=== PATIENT | female | born 1940 | race Caucasian/White ===

== ENCOUNTER 2018-02-27 15:32 | Outpatient (CLI) | payer MEDICARE, BC, OTHER ==
[~2018-02-27] VITALS: Ht 144.8 cm; Wt 99.8 kg
[~2018-02-27 15:32] MED LIST: ATIVAN0.5 MG PO; BACTRIM DS TAB1 EACH; CARISOPRODOL 3350 MG PO; CELEBREX 200 M200 MG PO; CLEOCIN HCL300 MG PO; DIAZIDE PO; DYAZIDE 37.5-21 EACH; FLAX OIL1000 MG; MIRALAX255 GM PO; PERCOCET 5-3251 EACH PO; PROVENTIL HFA6.7 G1 INH; RHINOCORT AQUA8.6 GM INH; STOOL SOFTENER1 EAC2 PO; TRAMADOL 50 MG50 MG PO; VITAMIN D35000 UNI1 PO
[2018-02-27] MEDS ORDERED: XARELTO10 MG PO (17:18)
[2018-02-27 18:03] VITALS: BP 174/107
== END 2018-02-27 18:04 | disposition home or self-care (01) ==
LOC: M.ERS 18:04
DX: S92.902A Unspecified fracture of left foot, initial encounter for closed fracture (principal); I82.412 Acute embolism and thrombosis of left femoral vein; B35.4 Tinea corporis; B35.3 Tinea pedis; L08.9 Local infection of the skin and subcutaneous tissue, unspecified; E11.9 Type 2 diabetes mellitus without complications; I10 Essential (primary) hypertension; X58.XXXA Exposure to other specified factors, initial encounter; Y93.89 Activity, other specified; Y92.89 Other specified places as the place of occurrence of the external cause; Y99.8 Other external cause status

== ENCOUNTER → 2018-03-03 | Outpatient (CLI) | payer MEDICARE, BC, OTHER ==
[~2018-03-03] MED LIST changes: +XARELTO10 MG PO
== END ==
LOC: M.WC 09:00
DX: E11.622 Type 2 diabetes mellitus with other skin ulcer (principal); I87.312 Chronic venous hypertension (idiopathic) with ulcer of left lower extremity; L97.822 Non-pressure chronic ulcer of other part of left lower leg with fat layer exposed; E11.65 Type 2 diabetes mellitus with hyperglycemia; E11.40 Type 2 diabetes mellitus with diabetic neuropathy, unspecified; I89.0 Lymphedema, not elsewhere classified; I10 Essential (primary) hypertension; J44.9 Chronic obstructive pulmonary disease, unspecified; K59.04 Chronic idiopathic constipation; M15.0 Primary generalized (osteo)arthritis; F41.1 Generalized anxiety disorder; Z96.643 Presence of artificial hip joint, bilateral; Z98.41 Cataract extraction status, right eye; Z98.42 Cataract extraction status, left eye

== ENCOUNTER → 2018-03-14 | Outpatient (CLI) | payer MEDICARE, BC, OTHER | LOC: M.WC 04:31 | DX: E11.622 Type 2 diabetes mellitus with other skin ulcer (principal); I87.312 Chronic venous hypertension (idiopathic) with ulcer of left lower extremity; L97.821 Non-pressure chronic ulcer of other part of left lower leg limited to breakdown of skin; E11.65 Type 2 diabetes mellitus with hyperglycemia; E11.40 Type 2 diabetes mellitus with diabetic neuropathy, unspecified; I89.0 Lymphedema, not elsewhere classified; I10 Essential (primary) hypertension; J44.9 Chronic obstructive pulmonary disease, unspecified; K59.04 Chronic idiopathic constipation; M15.0 Primary generalized (osteo)arthritis; F41.1 Generalized anxiety disorder; I82.492 Acute embolism and thrombosis of other specified deep vein of left lower extremity ==

== ENCOUNTER → 2018-03-21 | Outpatient (CLI) | payer MEDICARE, BC, OTHER | LOC: M.WC 04:57 | DX: I87.032 Postthrombotic syndrome with ulcer and inflammation of left lower extremity (principal); E11.622 Type 2 diabetes mellitus with other skin ulcer; L97.821 Non-pressure chronic ulcer of other part of left lower leg limited to breakdown of skin; E11.65 Type 2 diabetes mellitus with hyperglycemia; E11.40 Type 2 diabetes mellitus with diabetic neuropathy, unspecified; I89.0 Lymphedema, not elsewhere classified; I10 Essential (primary) hypertension; J44.9 Chronic obstructive pulmonary disease, unspecified; K59.04 Chronic idiopathic constipation; M15.0 Primary generalized (osteo)arthritis; F41.9 Anxiety disorder, unspecified; F41.1 Generalized anxiety disorder ==

== ENCOUNTER → 2018-03-28 | Outpatient (CLI) | payer MEDICARE, BC, OTHER | LOC: M.WC 05:20 | DX: E11.622 Type 2 diabetes mellitus with other skin ulcer (principal); I87.013 Postthrombotic syndrome with ulcer of bilateral lower extremity; L97.221 Non-pressure chronic ulcer of left calf limited to breakdown of skin; L97.211 Non-pressure chronic ulcer of right calf limited to breakdown of skin; E11.65 Type 2 diabetes mellitus with hyperglycemia; E11.40 Type 2 diabetes mellitus with diabetic neuropathy, unspecified; I82.402 Acute embolism and thrombosis of unspecified deep veins of left lower extremity; I89.0 Lymphedema, not elsewhere classified; I10 Essential (primary) hypertension; J44.9 Chronic obstructive pulmonary disease, unspecified; M15.0 Primary generalized (osteo)arthritis; K59.04 Chronic idiopathic constipation; F41.1 Generalized anxiety disorder ==

== ENCOUNTER → 2018-04-04 | Outpatient (CLI) | payer MEDICARE, BC, OTHER | LOC: M.WC 05:19 | DX: E11.622 Type 2 diabetes mellitus with other skin ulcer (principal); I87.032 Postthrombotic syndrome with ulcer and inflammation of left lower extremity; L97.221 Non-pressure chronic ulcer of left calf limited to breakdown of skin; L97.211 Non-pressure chronic ulcer of right calf limited to breakdown of skin; E11.65 Type 2 diabetes mellitus with hyperglycemia; E11.40 Type 2 diabetes mellitus with diabetic neuropathy, unspecified; I89.0 Lymphedema, not elsewhere classified; J44.9 Chronic obstructive pulmonary disease, unspecified; K59.04 Chronic idiopathic constipation; M15.0 Primary generalized (osteo)arthritis; F41.1 Generalized anxiety disorder; I82.402 Acute embolism and thrombosis of unspecified deep veins of left lower extremity ==

== ENCOUNTER → 2018-04-18 | Outpatient (CLI) | payer MEDICARE, BC, OTHER | LOC: M.WC 04:50 | DX: I87.312 Chronic venous hypertension (idiopathic) with ulcer of left lower extremity (principal); L97.821 Non-pressure chronic ulcer of other part of left lower leg limited to breakdown of skin; E11.40 Type 2 diabetes mellitus with diabetic neuropathy, unspecified; E11.65 Type 2 diabetes mellitus with hyperglycemia; I89.0 Lymphedema, not elsewhere classified; M15.0 Primary generalized (osteo)arthritis; K59.04 Chronic idiopathic constipation; J44.9 Chronic obstructive pulmonary disease, unspecified; F41.1 Generalized anxiety disorder ==

== ENCOUNTER → 2018-05-09 | Outpatient (CLI) | payer MEDICARE, BC, OTHER | LOC: M.WC 13:00 | DX: E11.622 Type 2 diabetes mellitus with other skin ulcer (principal); I87.032 Postthrombotic syndrome with ulcer and inflammation of left lower extremity; L97.828 Non-pressure chronic ulcer of other part of left lower leg with other specified severity; E11.65 Type 2 diabetes mellitus with hyperglycemia; E11.40 Type 2 diabetes mellitus with diabetic neuropathy, unspecified; I89.0 Lymphedema, not elsewhere classified; I10 Essential (primary) hypertension; J44.9 Chronic obstructive pulmonary disease, unspecified; K59.04 Chronic idiopathic constipation; M15.0 Primary generalized (osteo)arthritis; F41.1 Generalized anxiety disorder ==

== ENCOUNTER → 2018-06-14 | Outpatient (CLI) | payer MEDICARE, BC, OTHER | LOC: M.ULTRA 14:30 | DX: R60.0 Localized edema (principal); Z86.718 Personal history of other venous thrombosis and embolism ==

== ENCOUNTER 2018-09-18 06:10 | Inpatient (IN) | payer MEDICARE, BC, OTHER ==
[~2018-09-18] VITALS: Ht 144.8 cm; Wt 95.3 kg
[~2018-09-18 06:10] MED LIST changes: -DIAZIDE PO; +DYAZIDE 37.5-21 EACH PO; +MIRALAX17 G1 PO; -MIRALAX255 GM PO
[2018-09-18 06:18] VITALS: BP 150/81
[2018-09-18 07:18] LABS: ABSOLUTE EOSINOPHILS 0.1 thou/uL (0.0-0.7); ABSOLUTE MONOCYTES 0.6 thou/uL (0.0-1.2); ABSOLUTE NEUTROPHILS 8.2 thou/uL (1.6-8.1); BASOPHILS 0.3 %; EOSINOPHILS 0.7 %; HEMATOCRIT 44.5 % (37.0-47.0); HEMOGLOBIN 14.9 gm/dL (12.0-15.0); LYMPHOCYTES 10.1 %; MCH 30.2 pg (26.0-34.0); MCHC 33.5 g/dL (28.0-37.0); MCV 90.2 fL (80.0-100.0); MONOCYTES 6.4 %; MPV 8.7 fl. (7.2-11.1); NUCLEATED RBCS 0 /100WBC; PLATELET COUNT* 196 thou/uL (150-400); POLYS 82.5 %; RBC 4.93 mil/uL (4.20-5.00); RDW-CV 13.7 % (10.5-14.5); WBC 9.9 thou/uL (4.0-11.0)
[2018-09-18 07:22] LABS: CALCIUM 9.4 mg/dL (8.5-10.1); CREATININE 1.1 mg/dL (0.6-1.3); POTASSIUM 3.3 mmol/L (3.5-5.1)
[2018-09-18 07:26] LABS: ALBUMIN 2.8 g/dL (3.4-5.0); TOTAL BILIRUBIN 0.9 mg/dL (<0.1-1.0); TOTAL PROTEIN 7.9 g/dL (6.4-8.2)
[2018-09-18 09:06] LABS: URINE BILIRUBIN NEGATIVE (Negative); URINE BLOOD TRACE (Negative); URINE CLARITY CLEAR; URINE COLOR YELLOW; URINE GLUCOSE-RANDOM 3+ (Negative); URINE KETONES 1+ (Negative); URINE LEUKOCYTES-REFLEX NEGATIVE (Negative); URINE NITRITE-REFLEX NEGATIVE (Negative); URINE PROTEIN NEGATIVE (Negative); URINE SPECIFIC GRAVITY <= 1.005 (1.005-1.030); URINE UROBILINOGEN 0.2 E.U./dl (0.2-1.0)
--- NOTE | 2018-09-18 11:30 | NUR ---
PT STATES THAT SHE "DOES NOT WANT TO TAKE ANY MEDICATION FOR HER ELEVATED BLOOD SUGAR BECAUSE SHE DOES NOT TAKE ANYTHING AT HOME AND DOES NOT WANT TO START". THIS NURSE TALKED WITH THE HOSPITALIST AND NOTIFIED HIM OF THE CURRENT SITUATION.
--- NOTE | 2018-09-18 12:35 | NUR ---
PT CURRENTLY TAKING HER HOME MEDICATIONS FROM HER PERSONAL BAG. PT WAS NOTIFIED THAT SHE CANNOT TAKE HER OWN MEDICATIONS WITHOUT TALKING WITH THE DOCTOR AND PHARMACY. PT STATES "I DON'T CARE, I WILL TAKE MY MEDICATION IF I WANT TO". CHARGE NURSE NOTIFIED TO TALK WITH PATIENT.
--- NOTE | 2018-09-18 12:40 | NUR ---
PT ADMITS TO TAKING ONE TAB OF 200MG CELEBREX FROM HER HOME MEDICATIONS FOR PAIN. PT EDUCATED ON REFRAINING FROM TAKING HER HOME MEDICATIONS FROM HER PURSE. PT EDUCATED THAT THE PHARMACY WILL GO THROUGH HER HOME MEDICATIONS AND ORDER THEM THROUGH THE [facility].
--- NOTE | 2018-09-18 12:54 | NUR ---
PT GIVEN A LUNCH TRAY.
--- NOTE | 2018-09-18 14:36 | NUR ---
PT IS AGREEING TO STAY IN THE HOSPITAL AFTER SPEAKING WITH DR. ZUNIGA, HOSPITALIST. PT CONTINUES TO REFUSE TO TAKE ANY INSULIN BUT AGREES TO TAKING IV ANTIBIOTICS AND PO MEDICATIONS.
[2018-09-18 15:20] VITALS: BP 142/67
[2018-09-18 15:27] VITALS: BP 143/88
[2018-09-18 15:45] VITALS: BP 147/81
[2018-09-18 20:20] VITALS: BP 141/67
[2018-09-19] VITALS: BP 149/91
[2018-09-19 04:09] LABS: ABSOLUTE EOSINOPHILS 0.2 thou/uL (0.0-0.7); ABSOLUTE LYMPHOCYTES 1.5 thou/uL (0.8-5.3); ABSOLUTE MONOCYTES 0.6 thou/uL (0.0-1.2); ABSOLUTE NEUTROPHILS 5.1 thou/uL (1.6-8.1); BASOPHILS 0.5 %; EOSINOPHILS 3.1 %; HEMATOCRIT 39.8 % (37.0-47.0); HEMOGLOBIN 13.9 gm/dL (12.0-15.0); LYMPHOCYTES 19.8 %; MCH 31.1 pg (26.0-34.0); MCHC 34.9 g/dL (28.0-37.0); MONOCYTES 7.8 %; MPV 8.8 fl. (7.2-11.1); NUCLEATED RBCS 0 /100WBC; PLATELET COUNT* 211 thou/uL (150-400); POLYS 68.8 %; RBC 4.47 mil/uL (4.20-5.00); RDW-CV 13.1 % (10.5-14.5); WBC 7.4 thou/uL (4.0-11.0)
[2018-09-19 04:19] LABS: ALBUMIN 2.6 g/dL (3.4-5.0); CALCIUM 8.9 mg/dL (8.5-10.1); MAGNESIUM 1.6 mg/dL (1.8-2.4); POTASSIUM 3.3 mmol/L (3.5-5.1)
--- NOTE | 2018-09-19 07:17 | NUR ---
PT ALERT AND ORIENTED. VSS ON RA. PT ON CHAIR THROUGH SHIFT. PT HAD HOME MED IN THE ROOM AND REFUSED GIVING THEM UP. NURSING CELL TECHNICIAN NOTIFIED. NURSING CELL TECHNICIAN TALKED WITH PT. HOME MEDS SENT HOME. HOWEVER PT KEPT A TAB OF XARELTO AND ACTIVAN. PT SAID SHE WOULD TAKE THEM IF SHE DOES NOT GET HER 1AM XARELTO DOSE. NURSING CELL TECHNICIAN AND SECURITY NOTIFIED. HOME MEDS RETRIEVED AND DISPOSED OF. DR KIRBY NOTIFED THAT INCIDENT AND ASKED IF TO GO AHEAD AND GIVE XARELTO. XARELTO GIVEN PER 'S ORDER. PT WAS VERY RUDE IN DEALING WITH STAFFS REGARDING HER HOME MEDICINES. ISOLATION PRECAUTION IN PLACE. CALL LIGHT WITHIN REACH. HOURLY ROUNDINGS MADE. WILL CONTINUE TO MONITOR.
--- NOTE | 2018-09-19 14:54 | NUR ---
Nutrition: Pt seen for decubitous ulcer, cellulitis on elbow. Wt: 210#. BG 300s, alb 2.6, prealb 8.6. Severely depleted visceral protein stores. CHO controlled diet. In ISO. Per RN notes, pt refused insulin. RD will order Beneprotein powder with all meals for better nutrition. Mild risk.
[2018-09-19 16:25] VITALS: BP 172/59
--- NOTE | 2018-09-19 17:33 | NUR ---
ASSESSMENT COMPLETE. PT UP IN CHAIR THROUGHOUT THE DAY. PT REFUSES TURNS. PT REFUSING INSULIN FOR BLOOD SUGARS. IV ABX GIVEN ORDERED. DRESSINGS CHANGED. PT IS ON ROOM AIR, VSS. PT UP ONE ASSIST WITH WALKER. PT HAS IV IN RIGHT HAND, SALINE LOCKED. PT HAS NO OTHER CONCERNS AT THIS TIME. SEE ASSESSMENT AND VITALS FOR OTHER DETAILS. CALL LIGHT WITHIN REACH, WILL CONTINUE PLAN OF CARE
[2018-09-19 21:45] VITALS: BP 116/55
--- NOTE | 2018-09-20 05:37 | NUR ---
PT AWAKE MOST OF SHIFT. ASSESSMENT DOCUMENTED. MEDS GIVEN PER E-MAR PER PATIENT REQUEST. PT UPSET ABOUT AMOUNT OF ABX BEING RECIEVED, PT STATES THAT THE DRS ARE TRYING TO KILL HER WITH TOO MUCH ABX, BUT THAT SHE WOULD STILL TAKE IT SO SHE COULD GO HOME TODAY. PT EDUCATED ABOUT ANTIBIOTICS. PT REPORTS BEING UPSET THAT NOONE WILL WALK WITH HER AND FEELS THAT SHE IS GETTING WORSE BY BEING HERE. DRIVER MATERIAL HANDLER TALKED TO PATIENT. PT CALM AT THIS TIME. PT REPORTS UNDERSTANDING OF ABX, BUT STATES THAT SHE IS NOT GOING TO TAKE HER METFORMIN DUE TO IT UPSETTING HER STOMACH AND GIVING HER GAS, PT STATES THAT SHE DOES NOT WANT ANYTHING FOR HER GAS PAINS. PT WALKED HALLWAYS 2X THIS SHIFT. PTS IV FELL OUT WHILE SHE WAS SLEEPING, NEW IV STARTED. WILL CONTINUE WITH PLAN OF CARE.
[2018-09-20 07:50] LABS: ABSOLUTE EOSINOPHILS 0.3 thou/uL (0.0-0.7); ABSOLUTE LYMPHOCYTES 1.4 thou/uL (0.8-5.3); ABSOLUTE MONOCYTES 0.5 thou/uL (0.0-1.2); ABSOLUTE NEUTROPHILS 4.2 thou/uL (1.6-8.1); BASOPHILS 0.4 %; EOSINOPHILS 4.7 %; HEMATOCRIT 39.5 % (37.0-47.0); HEMOGLOBIN 13.3 gm/dL (12.0-15.0); LYMPHOCYTES 21.7 %; MCH 30.3 pg (26.0-34.0); MCHC 33.7 g/dL (28.0-37.0); MCV 90.1 fL (80.0-100.0); MONOCYTES 7.9 %; MPV 8.4 fl. (7.2-11.1); NUCLEATED RBCS 0 /100WBC; PLATELET COUNT* 219 thou/uL (150-400); POLYS 65.3 %; RBC 4.38 mil/uL (4.20-5.00); RDW-CV 13.5 % (10.5-14.5); WBC 6.5 thou/uL (4.0-11.0)
[2018-09-20 08:03] LABS: CALCIUM 8.9 mg/dL (8.5-10.1); CREATININE 0.9 mg/dL (0.6-1.3); MAGNESIUM 1.6 mg/dL (1.8-2.4); POTASSIUM 3.3 mmol/L (3.5-5.1)
--- NOTE | 2018-09-20 10:44 | NUR ---
SW met with pt to complete initial assessment, introduce self, and SW role. Pt alert, oriented. Pt previous record from 2011. Pt continues to live alone and pt says she does not ever want to live in long-term. Pt has a 4 ww with a seat. Pt has hx of HH services. Pt open to HH services at dc if needed. SW to continue to follow to assist with safe dc planning.
--- NOTE | 2018-09-20 10:55 | NUR ---
WOUND NURSE - PATIENT UP AMBULATING IN FU WITH ROLLER WALKER, WITH ELBOWS RESTING ON HANDLES - INSISTS THAT SHE DOES THIS ROUTINELY, IT IS MORE COMFORTABLE FOR HER. SHE HAS SOME DRY, THICKENED SKIN ON RIGHT ELBOW AND MORE PRONOUNCED PATCH OF DRY SKIN APPROXIMATELY 7 X 6 CM ON LEFT ELBOW. NO OPEN AREA OR DRAINAGE, NO ACUTE ERYTHEMA ON EITHER ELBOW. MOISTURIZER AND ELBOW PADS APPLIED TO BOTH ELBOWS. PATIENT ENCOURAGED TO AVOID UNNECESSARY PRESSURE TO ELBOWS. PATIENT REPORTS THAT SHE WAS AWARE OF OPEN AREA ON LEFT BUTTOCKS, FIRST NOTICED APPROXIMATELY 1 MONTH AGO. SHE HAD BEEN TRYING TO APPLY VARIOUS BANDAGES, BUT DIFFICULT TO APPLY HERSELF AND DO NOT STAY ON. SHE SITS IN RECLINER DAY & NIGHT, BUT DOES GET UP FREQUENTLY TO GO TO THE BATHROOM. NOTED SMALL STAGE 2 OPEN AREAS ON BILATERAL BUTTOCKS, EACH 1.8 X 0.8 CM. WOUND BASE DARK PINK, DRY WITH NO NECROTIC TISSUE AND NO DRAINAGE. SURROUNDING SKIN INTACT WITH NO ERYTHEMA, INDURATION OR FLUCTUANCE. AREA NON-TENDER. BOTH AREAS CLEANSED WELL, APPLIED SMALL AMOUNT OF Z-GUARD AND COVERED WITH SMALL BORDERED FOAM DRESSINGS. PATIENT INSISTS THAT DRESSINGS WILL NOT STAY ON, BUT WILLING TO TRY - ACKNOWLEDGING THAT APPLICATION BY STAFF MAY BE MORE SECURE THAN WHEN SHE APPLIES. REINFORCED IMPORTANCE OF KEEPING PRESSURE OFF AREA WITH FREQUENT POSITION CHANGES. ALSO ENCOURAGED PATIENT TO USE WAFFLE CUSHION TO ASSIST WITH PRESSURE REDISTRIBUTION WHILE SITTING. PLAN: -WOUND CARE ORDERED -ASSIST/REMIND PATIENT TO CHANGE POSITION EVERY 2 HOURS -EHOB WAFFLE CUSHION
[2018-09-20 12:34] VITALS: BP 116/55
--- NOTE | 2018-09-20 13:41 | NUR ---
GLUE SPREADER INFORMED THAT THE PATIENT WOULD D/C HOME TODAY WITH HH. D/C ADVERTISING SPECIALIST SPOKE TO THE PATIENT TO DISCUSS DISCHARGE PLANNING NEEDS AND CHOICE OF HH. PATIENT INFORMS THAT SHE HAD USED [facility] IN THE PAST FOR HH. D/C ADVERTISING SPECIALIST COMPLETED CHOICE OF VENDOR FOR WITH PATIENT AND PATIENT SIGNED FORM. D/C ADVERTISING SPECIALIST SPOKE TO [facility] TO INFORM OF THE HH REFERRAL AND FAXED THE PATIENT'S FACESHEET, H&P, AND D/C ORDERS TO [facility]. CM WILL REMAIN AVIALABLE TO ASSIST AND FOLLOW NEEDED.
[2018-09-20 14:58] VITALS: BP 116/55
[2018-09-20] MEDS ORDERED: GLUCOPHAGE XR500 MG PO (15:00)
[2018-09-20 15:01] VITALS: BP 116/55
[2018-09-20] MEDS ORDERED: MIRALAX17 GM PO (15:01)
[2018-09-20] MEDS ORDERED: CLEOCIN HCL150 MG PO (15:25)
[2018-09-20 15:45] VITALS: BP 116/55
--- NOTE | 2018-09-20 15:45 | NUR ---
ASSESSMENT COMPLETE. PT DC HOME WITH ANTIBIOTIC FROM DR GUERRA. INSTRUCTIONS AND NUMBERS GIVEN TO FOLLOW UP WITH DR GUERRA AND WOUND CLINIC. PT REFUSED TO HAVE PICTURES TAKEN AT DC BECAUSE WOUND NURSE CHANGED DRESSINGS EARLIER THIS MORNING. PT GIVEN ELBOW PADS TO HELP WHEN SHE LEANS ON WALKER TO WALK. PT GIVEN PRESCRIPTION AND DC INSTRUCTIONS AND VERBALIZES UNDERSTANDING. ALL BELONGINGS SENT WITH PATIENT. SEE ASSESSMENT AND VITALS FOR OTHER DETAILS. PT LEFT AT [phone]
[2018-09-20 16:06] LABS: GLYCOHEMOGLOBIN (HGB A1C) 13.3 % (4.8-5.6)
--- NOTE | 2018-09-21 11:02 | CON ---
[address] [address] CONSULTATION Name: AMERICO ROJO Room: [address] IN .R.#: [id number] Admission: 09/18/18 Attend Phys: Olman Patricio Discharge: 09/20/18 Date of : 42 Report #: [id number] THIS REPORT FOR: //name// CC: JANIE physician/PCP Harish Bridges DATE OF SERVICE: 09/19/2018 ATTENDING PHYSICIAN: Harish Bridges DO REASON FOR EVALUATION: Left mid upper extremity skin and soft tissue infection and cellulitis. HISTORY OF PRESENT ILLNESS: Chart reviewed, patient examined. This is a 78-year-old with history of Aida-Aida disease, apparently diagnosed in the who apparently developed what she describes as pressure-related injury to her left elbow site, that was jigsaw puzzles, had increasing inflammatory signs including pain, redness, swelling, heat. She presented to the Emergency Room and clinically felt to have skin and soft tissue infection with cellulitis, noted to have no evidence of deep vein thrombosis. Lactic acid was 0.7. Arterial Doppler showed scattered atherosclerotic changes consistent with the age. No significant focal stenosis or occlusion. As a result, she was admitted, placed on parenteral therapy with vancomycin, piperacillin and tazobactam. At this point, she clinically feels better. She has overall less pain and discomfort associated with the elbow. She does note she tends to do various activities, lean on her elbow including using her walker and again state of jigsaw puzzles. It is not clear if she had any fevers. She did admit to some chills. Does have intermittent shortness of breath at times. Blood cultures are sterile thus far. ALLERGIES: LISTED TO SULFA, METRONIDAZOLE, TRAZODONE AND HYDROMORPHONE. CURRENT MEDICINES: Include aspirin, oxycodone, pantoprazole, atorvastatin, diazepam, gabapentin, spironolactone, enoxaparin, melatonin, levetiracetam, levothyroxine, ropinirole. PAST MEDICAL HISTORY: Includes diabetes mellitus type 2, hypertension, Aida-Aida disease, history of DVT, bilateral hip replacements. SOCIAL HISTORY: Nonsmoker, no ethanol or drug use. FAMILY HISTORY: Noncontributory. REVIEW OF SYSTEMS: Otherwise is unremarkable, 10-point review of systems is with [place] [address] CONSULTATION Name: AMERICO ROJO Phylicia Room: [address]#: [id number] Admission: 09/18/18 Attend Phys: Olman Patricio Discharge: 09/20/18 Date of : 42 Report #: [id number] PHYSICAL EXAMINATION: GENERAL: She appears in [id number]-io-[id number] distress. She appears somewhat chronically ill, mildly undernourished. VITAL SIGNS: Temperature 97.2, pulse 75, respirations 19, blood pressure 149/91. SKIN: Warm, dry, no rashes. Does have a superficial stage 2 ulceration, medial left buttock about mid portion. HEENT: Normocephalic. Extraocular muscles intact. NECK: Supple. LUNGS: Generally clear to auscultation. HEART: Regular. I do not appreciate a murmur. ABDOMEN: Obese, soft, nontender. EXTREMITIES: Lower extremities have some taut edema. Left upper extremity, elbow has moderate degree of inflammation and swelling. There is some tenderness. I do not appreciate any excess bursal fluid over the olecranon. There are some superficial eschars, bruised areas, it has hcoh-it-tljibwha tenderness. GENITOURINARY: Deferred. RECTAL: Deferred. LABORATORY DATA: Blood cultures sterile thus far. Electrolytes: Sodium 137, potassium 3.3, chloride 99, bicarbonate is 27, anion gap of 11, BUN and creatinine 20 and 1.0, glucose of 323, albumin of 2.6. CBC: White count of 7.4, H and H of 13.9 and 39.8, platelets of 211, lower extremity showed no evidence of DVT. Urinalysis 3+ glucose, 1+ ketones, trace blood, no leukocytes, no fluid collection or inflammatory mass. ASSESSMENT AND PLAN: Left elbow inflammatory process, suspect component of skin and soft tissue infection, seemingly has responded to systemic antimicrobials. We will continue the combination at this point. Did discuss with Dr. Bridges. Additional 24 hours of parenteral therapy, then perhaps transition to clindamycin, she has responded to well in the past. I presume Staph or strep etiology and we will monitor expectantly. Continue wound care as prescribed. <ELECTRONICALLY SIGNED> By: Georgi Yu MD 09/21/18 1102 [id number] 22Jomrita Yu MD /nt
== END 2018-09-20 15:45 | disposition home health service (06) | DRG 602 ==
LOC: M.ERS 06:10 → M.TBA-ER 07:55 → M.3W 07:55
PROVIDERS: Emergency Medicine; ADMIT Internal Medicine
DX: L03.114 Cellulitis of left upper limb (principal); E11.00 Type 2 diabetes mellitus with hyperosmolarity without nonketotic hyperglycemic-hyperosmolar coma (NKHHC); Z96.643 Presence of artificial hip joint, bilateral; G89.29 Other chronic pain; M54.9 Dorsalgia, unspecified; Z96.1 Presence of intraocular lens; I10 Essential (primary) hypertension; E11.65 Type 2 diabetes mellitus with hyperglycemia; B95.62 Methicillin resistant Staphylococcus aureus infection as the cause of diseases classified elsewhere; R32 Unspecified urinary incontinence; L89.302 Pressure ulcer of unspecified buttock, stage 2; Z86.718 Personal history of other venous thrombosis and embolism; Z98.41 Cataract extraction status, right eye; Z98.42 Cataract extraction status, left eye; Z79.84 Long term (current) use of oral hypoglycemic drugs; Z88.1 Allergy status to other antibiotic agents; Z88.5 Allergy status to narcotic agent; Z88.8 Allergy status to other drugs, medicaments and biological substances

== ENCOUNTER 2019-10-16 13:56 | Inpatient (IN) | payer MEDICARE, BC ==
[~2019-10-16] VITALS: Ht 144.8 cm; Wt 95.3 kg
[~2019-10-16 13:56] MED LIST changes: +CLEOCIN HCL150 MG PO; +GLUCOPHAGE XR500 MG PO; +MIRALAX17 GM PO
[2019-10-16 13:57] VITALS: BP 107/47
[2019-10-16 14:54] LABS: ABSOLUTE BASOPHILS 0.1 thou/uL (0.0-0.2); ABSOLUTE EOSINOPHILS 0.6 thou/uL (0.0-0.7); ABSOLUTE LYMPHOCYTES 1.3 thou/uL (0.8-5.3); ABSOLUTE MONOCYTES 0.5 thou/uL (0.0-1.2); ABSOLUTE NEUTROPHILS 5.3 thou/uL (1.6-8.1); BASOPHILS 0.8 %; EOSINOPHILS 7.1 %; HEMATOCRIT 34.3 % (37.0-47.0); HEMOGLOBIN 11.8 gm/dL (12.0-15.0); MCH 30.9 pg (26.0-34.0); MCHC 34.3 g/dL (28.0-37.0); MCV 89.9 fL (80.0-100.0); MONOCYTES 6.7 %; MPV 8.8 fl. (7.2-11.1); NUCLEATED RBCS 0 /100WBC; PLATELET COUNT* 240 thou/uL (150-400); POLYS 68.4 %; RBC 3.82 mil/uL (4.20-5.00); RDW-CV 13.4 % (10.5-14.5); WBC 7.7 thou/uL (4.0-11.0)
[2019-10-16 15:00] LABS: URINE BILIRUBIN NEGATIVE (Negative); URINE BLOOD NEGATIVE (Negative); URINE CLARITY CLEAR; URINE COLOR YELLOW; URINE GLUCOSE-RANDOM 3+ (Negative); URINE KETONES NEGATIVE (Negative); URINE LEUKOCYTES-REFLEX NEGATIVE (Negative); URINE NITRITE-REFLEX NEGATIVE (Negative); URINE PROTEIN NEGATIVE (Negative)
[2019-10-16 15:03] LABS: CALCIUM 8.6 mg/dL (8.5-10.1); CREATININE 1.2 mg/dL (0.6-1.3)
[2019-10-16 15:05] LABS: POTASSIUM 2.8 mmol/L (3.5-5.1)
[2019-10-16 15:08] LABS: ALBUMIN 2.5 g/dL (3.4-5.0); TOTAL BILIRUBIN 0.4 mg/dL (<0.1-1.0); TOTAL PROTEIN 7.9 g/dL (6.4-8.2)
--- NOTE | 2019-10-16 16:36 | NUR ---
RAKESH NOTIFIED UPON PT RETURN FROM CT. EXPLAINED TO RAKESH IV WAS NOT CONNECTED PROPERLY TO HUB AND LEAKED. PT CONNECTED TO MONITOR
[2019-10-16 19:33] VITALS: BP 136/78
[2019-10-16 20:00] VITALS: BP 92/57
--- NOTE | 2019-10-17 05:55 | NUR ---
PATIENT ARRIVED FROM ER AT 1920 TO ROOM 312. PT ALERT/ORIENTED X4. PT LIVES AT HOME BY HERSELF BUT HAS TWO CARETAKERS THAT COME STAY WITH HER FROM 8:30A-1:30P AND 6:00P-10:00P. PT SAID SHE WEARS BRIEFS AT HOME SHE IS INCONTINENT OF BOWEL AND BLADDER. 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 PT WITH CELLULITIS ON LOWER BACK TO TOP OF BOTH LEGS, SOME AREAS WITH OPEN DRAINING AREAS. AREAS CULTURED AND SENT TO LAB ALONG WITH AN MRSA SWAB OF THE NARES. PT HAS PAST HX OF MRSA. BOTTOM AREA CLEANED WITH WOUND SPRAY, PATTED DRY AND LEFT INSEAMER, PAD CHANGED FREQUENTLY. PT TURNED Q2H PER PROTOCAL. 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 PT SAID THAT IT HAS ALWAYS BEEN RED THAT THIS IS NOTHING NEW FOR HER IN THESE AREAS. PT WITH PATEL TO DEPENDENT DRAIN WITH YELLOW URINE. TOWARDS MORNING URINE HAS SLIGHT PINK TINGE PRESUMABLY FROM URETERAL STONES MOVING. 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 JAMA CALLED TWICE DURING THIS SHIFT AND SAID HE HAS KNOWN HER FOR YEARS THAT IT IS OK TO CONTACT HIM FOR ANY INFORMATION. CARETAKERS TERI AND AKHIL ALSO KNOW THE PATIENBT WELL. TERI GIVEN SPECIAL PERMISSION TO COME FOR A SHORT VISIT AFTER VISITING HOURS ENDED SINCE PT WAS JUST ADMITTED. PATIENT HAS NOT DECIDED AT THIS TIME WHO HER ONE VISITOR WOULD BE. COVID VISITING POLICY EXPLAINED TO PT ALONG WITH CALL LIGHT AND PHONE USAGE. PT VERBALIZES UNDERSTANDING. FREQUENTLY USED ITEMS AND CALL LIGHT WITHIN REACH. SIDERAILS UPX4 AND BED ALARM ON. PT PLACED IN CONTACT ISOLATION. WILL CONTINUE TO MONITOR.
[2019-10-17 08:10] VITALS: BP 123/60
--- NOTE | 2019-10-17 09:04 | EKG ---
[place] [address] ELECTROCARDIOGRAM REPORT Name: AMERICO ROJO Room: [address] ADM IN .R.#: [id number] Admission: 10/16/19 Attend Phys: Ugo carbone Sa Discharge: Date of : 42 Date of Service: 10/16/19 1411 Report #: [id number] THIS REPORT FOR: //name// [facility] ED Test Date: 2019-10-16 Test Time: 14:11:42 Pat Name: AMERICO ROJO Department: Room: [facility] Gender: F [employer] Checkout Technician: [place] : 1940 Requested By: Antione Che Order Number: [id number] Julius MD: Gonzalez Taylor Measurements Intervals [place] Rate: 70 P: -26 NM: 197 QRS: -50 QRSD: 125 T: 64 QT: 443 QTc: 479 Interpretive Statements Sinus rhythm left axis nonspecific intraventricular conduction defect No previous ECG available for comparison Electronically Signed On 10-17-2019 9:03:38 CDT by Gonzalez Taylor [email or web address] <ELECTRONICALLY SIGNED> By: Gonzalez Taylor MD, [facility] 10/17/19 [phone] Gonzalez Taylor MD, [facility] /EPI
--- NOTE | 2019-10-17 15:44 | NUR ---
Pt in isolation. SW called Pt contact neighbor Kevin and it was [employer] phone so SW called one of listed pt representatives/caregiver Karey and left a detailed message requesting call back. Pt had been at home alone but pt has caregivers at times. Pt has rollator, maybe a wc. Pt has hx of HH. Pt nurse informed SW that [facility] called to check on pt. Pt may need placement at dc; ID and wound care following. SW to continue to follow to assist with safe dc planning.
--- NOTE | 2019-10-17 16:06 | NUR ---
WOUND NURSE: PATIENT SEEN TO ADDRESS SKIN LESIONS ON BILATERAL BUTTOCKS AND UPPER THIGHS. PRESENTS WITH SEVERE EXCORIATION, PARTIAL AND FULL THICKNESS TISSUE LOSS TO AFFECTED AREA. AFFECTED AREA MEASURES APPROX 38 X 38 CM -- DIFFICULT TO MEASURE AND PROBABLY NOT ACCURATE DUE TO PATIENT NOT COOPERATIVE. CLEANSED WITH SOAP AND WATER, RINSED WITH WATER, THEN PATTED DRY. APPLIED ZINC OXIDE (Z-GUARD) TO AFFECTED AEA. RECOMMEND 50/50 MIXTURE OF ZINC OXIDE WITH NYSTATIN CREAM IF DOCTOR AGREES BID AND PRN. SKIN IS TOO EXCORIATED TO GET BANDAGE TO ADHERE AT THIS TIME. PATIENT WAS INCONTINENT OF STOOL AND REQUIRED A COMPLETE BED CHANGE. PATIENT IS TEARFUL AND COMPLAINING THAT THIS IS NOT THE WAY SHE WANTS TO LIVE, I.E., SHE DOESN'T WANT DIABETES MANAGED WITH MEDICATION AND DOESN'T WANT TO HAVE TO LIVE WITH PAIN. EXPLAINED TO PATIENT THAT SHE MUST OFFLOAD HER WOUNDS BY REPOSITIONING FROM SIDE TO SIDE EVERY 2 HOURS. ALSO RECOMMENDED LOW AIRLOSS MATTRESS WHICH SHE INITIALLY WOULD NOT AGREE TO, BUT FINALLY CHANGED HER MIND. PATIENT WAS REPOSITIONED ONTO HER LEFT SIDE UPON COMPLETION OF CARE.
--- NOTE | 2019-10-17 18:23 | NUR ---
PATIENT ARGUMENTATIVE AND FUSSY WITH STAFF. PATIENT NON COMPLIANT WITH ORAL AGENTS ORDERED FOR GLUCOSE, PATIENT ARGUED WITH NURSE THIS AM STATING SHE WASNT GOING TO TAKE ANYTHING FOR HER BLOOD SUGAR. PATIENT INFORMED THAT SHE RECEIVED GLYBURIDE LAST EVENING AND PATIENT DID TAKE AM DOSE BUT THEN REFUSED ANYTHING ELSE. PATIENT WANTED TO SIT UP ON SIDE OF BED THIS AM, PATIENT ASSISTED. CAREGIVER AT BEDSIDE. IV ABX INFUSED, IV NOTED THIS EVENING TO BE LEAKING. REPLACEMENT UNSUCCESSFUL AND SURGICAL TECH NOTIFIED FOR ASSISTANCE. PATIENT CALLED OUT THIS AFTERNOON TO SIT ON SIDE OF BED AGAIN, PATIENT INFORMED THAT WOUND CARE WAS COMING UP TO ADDRESS BUTTOCK WOUNDS. JB FROM WOUND CARE HERE AND PATIENT NOTED TO HAVE HAD A STOOL. PATIENT STATED TO JB THAT SHE HAD ASKED FOR A BEDPAN AN HOUR AGO. PATIENT INFORMED THAT SHE DID NOT ASK FOR A BEDPAN WHEN STAFF WAS PRESENT AND THAT PATIENT HAD ASKED TO JUST SIT ON SIDE OF BED. TURN Q2, PATIENT HAS TO BE ENCOURAGED. LOW AIR LOSS MATRESS ORDERED, AWAITING ARRIVAL. 1/2 NYSTATIN 1/2 ZINC TO WOUNDS ON BUTTOCKS. THIS NURSE WENT TO ASSIST PATIENT WITH MEAL SET UP AND FOWLERS POSITION PATIENT WAS NOTED TO BE IN SEMI FOWLERS WITH TRAY IN FRONT ON HER. THIS NURSE INSTRUCTED PATIENT SHE NEEDED TO BE SITTING UP MORE IN BED TO EAT. PATIENT STATED "WELL I WOULD'VE REALLY LIKED TO HAVE SAT ON THE SIDE OF BED TO EAT BUT YOU WOULDNT LET ME." THIS NURSE EXPLAINED TO PATIENT THAT THIS NURSE GOT HER UP ON SIDE OF BED FOR BREAKFAST AND WOULD HAVE GOTTEN HER UP FOR DINNER. PATIENT STATED "WELL YOU ONLY LET ME SIT UP ON THE RIGHT SIDE OF THE BED AND I WANTED TO SIT UP ON THE LEFT SIDE." PATIENT NOTIFIED THAT THIS NURSE WOULD HAVE ASSISTED HER TO EITHER SIDE AND PATIENT STATED "WELL I DONT ASK BECAUSE YOU WONT LET ME." POTASSIUM 1ST DOSE REPLACED FOR LEVEL OF 3.0.
[2019-10-17 21:25] VITALS: BP 106/54
[2019-10-18 08:24] VITALS: BP 127/66
--- NOTE | 2019-10-18 15:15 | NUR ---
SW received call back from pt caregiver Karey who said she is pt caregiver from 8:30 to 2:30 pm and that there is another caregiver from 6 to 10 pm. SW discussed recommendation for SNF placement with pt and pt adamantly refused that option. Pt said she believes that she will go home with abx and wound care. SW to continue to follow to assist with safe dc planning.
--- NOTE | 2019-10-18 16:22 | NUR ---
WOUND NURSE: ASSISTED NURSES ON PLACING PATIENT ON LOW AIRLOSS MATTRESS. THIS WAS TOLERATED WELL BY THE PATIENT.
--- NOTE | 2019-10-18 16:27 | NUR ---
PT REFUSING CARES. REFUSED ACCU CHECKS AND MOST MEDICATIONS. PT ASSISTED TO SIT UP AT SIDE OF BED X2 TODAY. DENIES NEED FOR PAIN MEDICATION. PROGRESSING TOWARDS GOALS.
[2019-10-18 20:00] VITALS: BP 125/59
--- NOTE | 2019-10-19 06:37 | NUR ---
ASSUMED CARE FROM DAY SHIFT PT ALERT ORIENTED X4 DENIES PAIN , PT INCONINTENT OF LARGE LIQ DARK BROWN STOOL. PT ABLE TO TURN FOR CLEANING AND CREAM TO BUTTOCKS APPLIED. REFUSED HS BLOOD GLUCOSE AND REQUESTING ICE CREAM. SUGAR FREE PUDDING GIVEN. PT RESTED WELL THROUGHOUT HORLY ROUNDS WILL CONITNUE WITH CURRENT PLAN OF CARE.
[2019-10-19 08:26] VITALS: BP 150/72
--- NOTE | 2019-10-19 12:27 | NUR ---
PATIENT WAS GIVEN A COMPLETE BED Bath she tolerated well. DR GUERRA CAME IN TO TALK WITH PATIENT AND SHE BECAME VERY UPSET AND STARTED CRYING. SHE IS STATING SHE "CAN'T DO THIS ANY MORE. I JUST WANT TO GO HOME." I ENCOURAGED HER AND HER ACOUSTICAL MATERIAL WORKER IS IN THE ROOM TALKING WITH HER NOW.
[2019-10-19 15:22] VITALS: BP 150/72
--- NOTE | 2019-10-19 15:25 | NUR ---
Pt possible to dc home over the weekend. Pt preference to be able to dc home with caregivers. Wound care nurse discussed dc planning with SW and hospice and/or HH services discussed; pt possibly open to an informational visit from hospice but refused any other services or any other plan. SW to send referral for hospice to be able to provide pt information after dc. If hospice is ordered at dc, can send orders/dc summary to [facility] [place]: fax [phone] Pt agreeable to hospice option. SW entered details of pt wound care appt OP in dc assessment.
--- NOTE | 2019-10-19 15:43 | NUR ---
WOUND NURSE: PATIENT SEEN TODAY FOR FOLLOW UP PENDING POSSIBLE DISCHARGE IN FUTURE. DISCUSSED WITH PATIENT TO SCHEDULE TO BE SEEN IN WOUND CARE CENTER AND APPT WAS SCHEDULED FOR 10/[address] LEON FONG MD. ACCORDING TO NURSE, CLAUDIA, PATIENT REFUSING CARE AND MEDICATIONS ON SEVERAL OCCASIONS THROUGHOUT THE DAY. ALSO REFUSING REPOSITIONING TO OFFLOAD BUTTOCK WOUNDS AND MANAGEMENT OF HER DIABETES. DISCUSSED WITH PATIENT REGARDING THE NEED FOR FOLLOW UP HOME CARE AND SHE AGREES TO GOING HOME [facility] AND HOSPICE INFORMATIONAL VISIT. I SPOKE WITH [facility] WILL FOLLOW UP REGARDING HOME HEALTH SERVICES AND HOSPICE INFORMATIONAL VISIT POSSIBLY THROUGH [facility] UPON DISCHARGE FROM ACUTE CARE. PATIENT TO CONTINUE WITH CURRENT PLAN OF CARE REGARDING HER BUTTOCK WOUNDS.
--- NOTE | 2019-10-19 17:54 | NUR ---
I WAS IN THE ROOM TO ADMINISTER MEDICATIONS AND PATIENT TOLD ME THAT SHE WANTED TO . SHE STATES "I JUST CAN'T DO THIS ANYMORE." I ASK HER HOW SHE PLANNED TO DO THIS AND SHE STATED. "I WILL CUT MY WRIST AND IF THAT DON'T WORK I WILL CUT MY THROAT." SHE WENT ON TO SAY THAT SHE THINKS ABOUT IT ALL THE TIME. SHE HAS BEEN VERY TEARFUL TODAY AND DOES REFUSE MOST MEDS AND REFUSES ANY TREATMENT FOR HER DIABETES. SHE WILL NOT ALLOW US TO DO ACCU CHECKS AND THEY WERE DISCONTINUED TODAY. SHE IS ALERT AND ORIENTED X 4 AND INCONT. OF BOWEL. SHE HAS A PATEL DUE TO OPEN WOUNDS THAT IS DRAINING MIRIAN COLORED URINE. SHE DOES USE THE CALL LIGHT FOR ASSISTANCE. FALL PRECAUTIONS HAVE BEEN MAINTAINED. WAITING FOR THE TO CALL ME BACK. I DID SENT A MESSAGE TO HER VIA YOU CALL .
--- NOTE | 2019-10-20 08:02 | CON ---
[address] [address] CONSULTATION Name: AMERICO ROJO Room: [address] IN M.R.#: [id number] Admission: 10/16/19 Attend Phys: Ugo Campbell Discharge: Date of : 42 Report #: [id number] THIS REPORT FOR: //name// cc: JANIE Reyna family physician/PCP JANIE Reyna family physician/PCP ~ THIS REPORT FOR: //name// CC: JANIE physician/PCP Ugo Sheth DATE OF SERVICE: 10/19/2019 INFECTIOUS DISEASE CONSULTATION ATTENDING PHYSICIAN: Dr. Sheth. REASON FOR EVALUATION: Extensive inflammatory eruption with ulceration involving the distal thoracic as well as sacral and extensive perineal and posterior thigh site. HISTORY OF PRESENT ILLNESS: Chart reviewed, the patient examined. 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 It is notable that she had a left hip fracture that was treated conservatively, this has led to extensive time in the bed and in a wheelchair and longer healing. She does not frequently develop these sorts of lesions in part attributable to her underlying genetic disease. She has been on therapy with antibiotics variously including clindamycin as well as Levaquin, the latter of which she states she could not take due to what appers to be tendinitis. She was admitted, started on broad-spectrum therapy with vancomycin as well as piperacillin and tazobactam. Cultures were collected and early evidence suggests a growth of Escherichia coli as well as Enterobacter waiting on susceptibilities. She does admit to chills. She has not some low-grade temperature elevations as well. She had a poor p.o. intake. ALLERGIES: CODEINE, HYDROCODONE, BACTRIM, AND LEVAQUIN. CURRENT MEDICATIONS: Include lorazepam, vancomycin, Zosyn, cholecalciferol, albuterol, Nystatin, celecoxib, rivaroxaban. PAST MEDICAL HISTORY: As described above, Aida-Aida disease, diabetes mellitus, hypertension, recent hip fracture, history of DVT. SOCIAL HISTORY: Nonsmoker, no ethanol, [place] [address] CONSULTATION Name: AMERICO ROJO Phylicia Room: [address] IN [facility].#: [id number] Admission: 10/16/19 Attend Phys: Ugo Campbell Discharge: Date of : 42 Report #: [id number] FAMILY HISTORY: Noncontributory. REVIEW OF SYSTEMS: Otherwise, as noted above, he has had some loose stools. She takes MiraLax. PHYSICAL EXAMINATION: GENERAL: She is quite distressed, moderate to marked discomfort, mildly encephalopathic. VITAL SIGNS: Temperature max overnight 99.7, more recently 98.8; pulse 65; respirations 16; blood pressure 150/72. SKIN: Warm, dry, no rashes. HEENT: Otherwise unremarkable. NECK: Supple. Extraocular muscles intact. LUNGS: Diminished, otherwise clear breath sounds. HEART: Regular. ABDOMEN: Somewhat tender, soft. Noted extensive inflammatory eruption with ulceration over the lower third of the back as well as the buttock and perineal area along the posterior aspect of the thighs, it is quite tender. LABORATORY DATA: MRSA PCR was negative. Culture as described above; growth of moderate E coli, moderate Enterobacter aerogenes. Blood cultures sterile thus far. Hemoglobin A1c 10.0. CT abdomen and pelvis; bilateral hydronephrosis and hydroureter, not overtly evident obstructive process, although bilateral ureteral stones could not be excluded. No bowel wall thickening, nonspecific enlarged periaortic lymph nodes. Lactic acid was 1.6. Electrolytes: Sodium 136, potassium 2.8, chloride 97, bicarbonate is 33, BUN and creatinine 18 and 1.2, anion gap of 6, glucose was initially 307. LFTs unremarkable. Albumin of 2.5, total protein 7.9. Urinalysis unremarkable. CBC: White count of 7.7, H and H 11.8 and 34.3, platelets of 240. ASSESSMENT AND PLAN: Extensive inflammatory eruption with a break down in ulceration. Certainly suspect a component of skin and soft tissue infection, may well be both bacterial as well as fungal. We will continue therapy with piperacillin and tazobactam. At this point, not have any evidence of gram-positive. Discontinuing the vancomycin, add fluconazole for now. Wound care. Critical offload. Primarily try to optimize her nutritional status. Clearly, she is undernourished. Monitor expectantly risk for other nosocomial related complications. <ELECTRONICALLY SIGNED> By: Georgi Yu MD 10/20/19 0802 [id number] [id number] Yu MD /nt
[2019-10-20 10:33] VITALS: BP 157/73
[2019-10-20 16:00] VITALS: BP 155/59
--- NOTE | 2019-10-20 17:38 | NUR ---
PATIENT IS ALERT AND ORIENTED X 4. SHE HAS BEEN ON BEDREST TODAY AND OT AND PT HAVE BEEN IN TO WORK WITH HER. HER MOOD HAS BEEN ALOT BETTER TODAY THAN YESTERDAY AND SHE HAS NOT HAD ANY COMPLAINTS TODAY. HER SYRUP BLENDER CAME UP TODAY AND SPENT TIME WITH HER. SHE IS EATING SUPPER NOW AND HAS VOICED NO NEEDS OR WANTS. SHE HAD A LARGE BOWEL MOVEMENT TODAY AND WE CLEANED HER UP AND I APPLIED THE MEDICATION TO HER BOTTOM ORDERED. IV ANTIBIOTICS CONTINUE.
[2019-10-20 21:00] VITALS: BP 130/64
--- NOTE | 2019-10-21 06:08 | NUR ---
PATIENT HAS REMAINED ALERT AND ORIENTED X 4 THROUGHOUT THE SHIFT. LORAZEPAM PROVIDED FOR SLEEP. PATIENT ORDERS REQUIRED WAKING FOR ADMINISTRATION OF ANTIBIOTICS AND WOUND CARE. INCONT BM X 2. REFUSED TO TURN EXCEPT FOR ISABELLA-CARE. BLEEDING NOTED OF RIGHT BUTTOCKS AREA THIS AM. JUST ADEQUATE URINE OUTPUT. PAIN MEDICATION WAS OFFERED NOTED DISCOMFORT WITH TURNS. PATIENT DECLINED. RATHER FLAT EFFECT MOST OF INTERACTIONS. BRIEFLY TEARFUL AT HS. AIRFLOW MATTRESS IN USE. VITAL SIGNS STABLE. CONTINUE TO MONITOR.
[2019-10-21 08:00] VITALS: BP 152/73
--- NOTE | 2019-10-21 18:17 | NUR ---
PT A&OX4 VSDS. PT INTERMITTENTLY TEARFUL AND ANGRY. PT STATES SHE JUST WANTS TO GO HOME. LAB NEGATIVE FOR MRSA OF NARES. IV VANC DC'D. BUTTOCKS REMAIN REDDENED AND RAW. DR GUERRA SAW THIS PT THIS AM, AREAS WERE CLEANED AND PHOTOS WERE TAKEN AND PLACED TO CHART AT THIS TIME. NYSTATIN REQUESTED FROM PHARMACY. PT HAD SOFT, UNFORMED BMs TODAY. PT ASSISTED WITH BED BATH WITH PCT THIS SHIFT. SHEET IS PLACED ON BED BENEATH PT FULL LENGTH, P[T STATES SHE CANNOT COME IN CONTACT WITH THE MATERIAL COVERING THE MATTRESS. PT RESTS IN BED AT THIS TIME WITH CALL LIGHT IN REACH. WILL CONTINUE TO MONITOR. PT ONLY CVOMPLAINS OF ITCHING, NOT PAIN. DISCOMFORT ONLY DURING CARES WHEN SKIN IS BEING CLEANED.
[2019-10-21 20:00] VITALS: BP 132/62
--- NOTE | 2019-10-22 05:23 | NUR ---
ASSUMED CARES AT 1920. ALERT AND ORIENTED. ANXIOUS AND TEARFUL. STATES "I'M MISERABLE". C/O SORENESS TO BOTTOM. BUTTOCKS AND THIGHS ARE RED, EXCORIATED. RIGHT BUTTOCK WITH OPEN AREA. NYSTATIN CREAM APPLIED. OUT OF ZINC CREAM AT THIS TIME. SALINE LOCK TO LEFT HAND. PATEL CATHETER DD DARK YELLOW URINE. STOOL INCONTINENCE. REFUSED TO TURN ONTO SIDES. WILL CONTINUE TO MONITOR.
[2019-10-22] MEDS ORDERED: NYSTATIN15 G2 TOP (08:31)
[2019-10-22 12:18] VITALS: BP 150/72
--- NOTE | 2019-10-22 12:26 | NUR ---
Pt to dc home alone with caregivers at times today. ANITHA spoke with pt about dc plan and pt preference for some therapy but did not want to use previous HH agency because she felt that HH wanted her to go into hospital or fpc placement. Pt agreeable to hospice with some therapies provided due to hospice being able to help pt avoid hospitalizations. Hospice can provide the antibiotics. ANITHA faxed updated information and dc summary to pt preference of [facility]. Pt in need of ambulance transport; ANITHA faxed form and confirmed ambulance for 1:30 pm. ANITHA informed Mikaela Alcaraz of dc time and hospice will meet pt at pt home at 2 pm.
[2019-10-22 13:00] VITALS: BP 150/72
[2019-10-22] MEDS ORDERED: CEFDINIR300 MG PO (13:18)
[2019-10-22] MEDS ORDERED: FLUCONAZOLE200 MG PO (13:20)
--- NOTE | 2019-10-22 14:05 | NUR ---
PT A&OX4 VSS. PT INTERMITTENTLY TEARFUL/IRRITABLE. ACCUCHECK DC'D PER PT REQUEST APPROVED BY PHYSICIAN. IV TO L HAND PATENT, IV ABX ADMINISTERED THIS AM. IV DC'D PRIOR TO PT LEAVING UNIT. ZINC/NYSTATIN OINTMENT APPLIED GENEROUSLY TO REDDENED AREAS OF BUTTOCKS AND POSTERIOR THIGHS. PT PATEL CATHETER PATENT, YELLOW URINE VISIBLE IN COLLECTION BAG. PATEL DC'D PRIOR TO PT LEAVING. APPROX 550 ML URINE IN BAG. PER DR MORALES PATEL MAY REMAIN IN PLACE AT DC R/T WOUNDS/SKIN INTEGRITY. PT REFUSED AT TIME OF DC AND INSISTED PATEL BE REMOVED. LAXATIVES/STOOL SOFTENERS HELD PT IS HAVING FREQUENT SOFT STOOLS. PT INCONTINENT OF BOWEL. CM HAS ARRANGED FOR [facility] TO TRANSPORT PT TO HER RESIDENCE. ARRANGEMENTS THROUGH CASE MGMNT MADE FOR [facility] MUSICAL INSTRUMENT MAKER TO MEET PT AT HOME TO DISCUSS ARRANGEMENT. CAREGIVER PRESENT AT TIME OF CARES AND DC EDUCATION. PT STATES SHE HAS UNDERSTANDING OF DC INSTRUCTIONS AND RX PROVIDED. PT ALSO STATES SHE IS AWARE OF F/U APPOINTMENTS. PT LEAVES UNIT WITH ALL PERSONAL BELONGINGS WITH FARM PRODUCT PURCHASER. DC PAPERWORK AND RX ACCOMPANY PT UPON LEAVING UNIT.
== END 2019-10-22 14:05 | disposition hospice, home (50) | DRG 602 ==
LOC: M.ERS 13:56 → M.TBA-ER 17:17 → M.3W 17:17
PROVIDERS: Emergency Medicine; ADMIT Family Medicine; ATTEND Family Medicine
DX: L03.317 Cellulitis of buttock (principal); E43 Unspecified severe protein-calorie malnutrition; Z68.42 Body mass index [BMI] 45.0-49.9, adult; L89.159 Pressure ulcer of sacral region, unspecified stage; G89.29 Other chronic pain; M54.9 Dorsalgia, unspecified; Z96.643 Presence of artificial hip joint, bilateral; L89.109 Pressure ulcer of unspecified part of back, unspecified stage; L89.899 Pressure ulcer of other site, unspecified stage; Z96.1 Presence of intraocular lens; I10 Essential (primary) hypertension; E66.01 Morbid (severe) obesity due to excess calories; F43.25 Adjustment disorder with mixed disturbance of emotions and conduct; Z66 Do not resuscitate; G62.9 Polyneuropathy, unspecified; Z51.5 Encounter for palliative care; Z79.899 Other long term (current) drug therapy; Z98.42 Cataract extraction status, left eye; Z98.41 Cataract extraction status, right eye; Z79.01 Long term (current) use of anticoagulants; Z88.6 Allergy status to analgesic agent; Z88.1 Allergy status to other antibiotic agents; Z88.5 Allergy status to narcotic agent; Z88.2 Allergy status to sulfonamides; Z88.8 Allergy status to other drugs, medicaments and biological substances; Z86.718 Personal history of other venous thrombosis and embolism; Z87.81 Personal history of (healed) traumatic fracture; Z91.14 Patient's other noncompliance with medication regimen; Q82.8 Other specified congenital malformations of skin

== ENCOUNTER 2020-04-27 21:50 | Inpatient (IN) | payer MEDICARE, BC ==
[~2020-04-27] VITALS: Ht 160 cm; Wt 84.9 kg
[~2020-04-27 21:50] MED LIST changes: +CEFDINIR300 MG PO; +FLUCONAZOLE200 MG PO; +NYSTATIN15 G2 TOP
[2020-04-27 21:52] VITALS: BP 153/133
[2020-04-27] MEDS ORDERED: DYAZIDE 37.5-21 EACH PO (22:03)
[2020-04-27] MEDS ORDERED: MORPHINE SULFAT15 M3 PO (22:04)
[2020-04-27] MEDS ORDERED: PREDNISONE 5 MG5 M1 PO (22:05)
[2020-04-27] MEDS ORDERED: BANOPHEN25 MG PO (22:05)
[2020-04-27] MEDS ORDERED: NEURONTIN100 MG PO (22:06)
[2020-04-27] MEDS ORDERED: METHOTREXATE 22.5 M1 PO (22:06)
[2020-04-27] MEDS ORDERED: ZOFRAN4 MG PO (22:06)
[2020-04-27] MEDS ORDERED: VOLTAREN GEL 1100 G1 TOP (22:07)
[2020-04-27] MEDS ORDERED: HYDROCORTISONE30 GM TOP (22:07)
[2020-04-27 22:33] LABS: HEMATOCRIT 27.9 % (37.0-47.0); HEMOGLOBIN 8.9 gm/dL (12.0-15.0); MCH 27.9 pg (26.0-34.0); MCV 87.2 fL (80.0-100.0); MPV 7.3 fl. (7.2-11.1); NUCLEATED RBCS 0 /100WBC; PLATELET COUNT* 254 thou/uL (150-400); RDW-CV 15.7 % (10.5-14.5); WBC 20.1 thou/uL (4.0-11.0)
[2020-04-27 22:42] LABS: CALCIUM 7.7 mg/dL (8.5-10.1); CREATININE 6.4 mg/dL (0.6-1.3); POTASSIUM 3.9 mmol/L (3.5-5.1)
[2020-04-27 22:45] LABS: APTT 34.2 Seconds (25.0-31.3); INR 1.2; PROTIME 12.4 Seconds (9.20-11.50)
[2020-04-27 22:50] LABS: URINE BILIRUBIN NEGATIVE (Negative); URINE BLOOD NEGATIVE (Negative); URINE CLARITY CLEAR; URINE COLOR YELLOW; URINE GLUCOSE-RANDOM NEGATIVE (Negative); URINE KETONES NEGATIVE (Negative); URINE LEUKOCYTES-REFLEX 1+ (Negative); URINE NITRITE-REFLEX NEGATIVE (Negative); URINE PROTEIN TRACE (Negative); URINE UROBILINOGEN 0.2 E.U./dl (0.2-1.0)
[2020-04-27 22:53] LABS: ALBUMIN 1.6 g/dL (3.4-5.0); TOTAL BILIRUBIN 0.6 mg/dL (<0.1-1.0); TOTAL PROTEIN 6.6 g/dL (6.4-8.2)
[2020-04-27 23:03] LABS: BACTERIA-REFLEX 1-9 Few /HPF (None Seen); CASTS None Seen /LPF (None Seen); CRYSTALS None Seen /LPF (None Seen); MUCUS None Seen strn/LPF (None Seen); SQUAMOUS 4-10 Moderate /LPF (0-3); URINE WBC-REFLEX 6-15 Few /HPF (0-5)
[2020-04-27 23:04] LABS: URINE RBC None Seen /HPF (0-2)
[2020-04-27 23:07] LABS: ABSOLUTE LYMPHOCYTES 0.6 thou/uL (0.8-5.3); ABSOLUTE MONOCYTES 0.4 thou/uL (0.0-1.2); ABSOLUTE NEUTROPHILS 19.1 thou/uL (1.6-8.1); PLATELET ESTIMATE ADEQUATE; TOXIC GRANULATION 2+
[2020-04-27 23:08] LABS: CLUMPED PLTS FEW
[2020-04-28] VITALS (7 sets, daily range): BP systolic 90–121; BP diastolic 21–75
--- NOTE | 2020-04-28 01:17 | NUR ---
PT IS A HOSPICE PT WITH OUTSIDE DNR. PT HAS BEEN REFUSING CARE AT HOME. PT IS REFUSING TO TAKE MEDS AND LET THEM CLEABN HER UP. PT KEEPS STATING"LEAVE ME ALONE, I DONT WANT THIS LET ME " PT HAS WEEPING LEGS. SORE WITH FOUL SMELLING DRAINAGE UNDER BREASE , BUTTOCKS AND LEGS. PATEL INTACT AND PATENT DRAINING CLOUDY YELLOW URINE. IV RIGHT AC INTACT WITHOUT REDNESS OR SWELLOING. O2 2L BNC INTACT. WILL CONTINUE TO MONITOR PT
--- NOTE | 2020-04-28 13:09 | NUR ---
CM ATTEMPTED TO SPEAK TO THE PT TO DISCUSS CM ASSESSMENT. PT UNRESPONSIVE AT THIS TIME PER RN IN-CHARGE OF PT. CM CONTACTED PT'S EMERGENCY CONTACT JAMA, AND HE INFORMS THAT THE PT RESIDES AT HOME ALONE. HE HAS 'KNOWN HER FOR 30 YRS' AND IS 'HER DPOA AND CHECK ON HER DAILY BEFORE AND AFTER WORK'. PT HAS NO FAMILY OR OTHER FRIENDS. PT IS CURRENTLY ON-SERVICE WITH [facility] AND HAS A CAREGIVER TO ASSIST HER BETWEEN 8AM-12PM AND 6PM-10PM. CM INFORMED PT'S DPOA OF PHYSICIANS PLAN FOR PT TO D/C TO HOSPICE HOUSE AND INFORMED HIM OF NEED TO BRING COPY OF PT'S DPOA PAPERWORK WITH HIM TO HOSPITAL. CM CONTACTED [facility] TO DISCUSS PT'S HOSPICE STATUS. [facility] INTAKE INFORMS THAT A [facility] RN WAS ALREADY HERE AT THE HOPSITAL AND GETTING PT TO SIGN PAPERWORK TO REVOKE HOSPICE. CM INFORMED [facility] RN THAT THE PT IS UNRESPONSIVE AND PER PHYSICIAN THE PLAN IS FOR THE PT TO D/C TO THE HOSPICE HOUSE. CM AWAITING DPOA TO DISCUSS CHOICE OF HOSPICE HOUSE. CM WILL REMAIN AVAILABLE TO ASSIST AND FOLLOW NEEDED.
--- NOTE | 2020-04-28 13:57 | NUR ---
PT HAS HX OF IRLANDA'S DISEASE AND HAS SORES ALL OVER BODY. PT WAS BROUGHT TO HOSPITAL FROM HOME HOSPICE AND REPORTED THAT SHE DID NOT WANT TO COME TO HOSPITAL FOR TREATMENT. CM HAS CONTACTED HEALTHCARE DPOA AND HE WILL COME TO HOSPITAL. PT LARGELY UNRESPONSIVE AND WILL ONLY OPEN EYES TO CHEST RUB SOMETIMES. PT IS NOW MED/SURG STATUS BUT I WILL LEAVE TELE ON SHE IS A DNR AND IS FROM HOSPICE. BED LOW AND LOCKED, SIDE RAILS UP X3, CALL LIGHT IN REACH. WILL MEDICATE FOR COMFORT NEEDED.
--- NOTE | 2020-04-28 14:55 | NUR ---
PT'S WATCH AND RING TAKEN OFF AND GIVEN TO DPOA TO TAKE HOME. DPOA BROUGHT IN PAPER WORK AND WILL HAVE DISCUSSION WITH BARREL COOPER.
--- NOTE | 2020-04-28 15:12 | EKG ---
[place] [address] ELECTROCARDIOGRAM REPORT Name: AMERICO ROJO Room: [address] ADM IN ..#: [id number] Admission: 04/28/20 Attend Phys: Rober Yang, Discharge: Date of : 42 Date of Service: 04/27/202156 Report #: [id number] THIS REPORT FOR: //name// [facility] ED Test Date: 2020-04-27 Test Time: 21:57:03 Pat Name: AMERICO ROJO Department: Room: [facility] Gender: F Administrative Judge: HOLGER : 1940 Requested By: Harris Guerra Order Number: [id number] MD: Pk Delgado Measurements Intervals [place] Rate: 96 P: -2 NM: 132 QRS: -47 QRSD: 135 T: 94 QT: 406 QTc: 514 Interpretive Statements Sinus rhythm Probable left atrial enlargement Left bundle branch block Compared to ECG 10/16/2019 14:11:42 Left bundle-branch block persists Electronically Signed On 04-28-2020 15:12:23 SOFTWARE FIRMWARE ENGINEER by Pk Delgado [email or web address] <ELECTRONICALLY SIGNED> By: Pk Delgado MD, FAC 04/28/20 1512 56 56 Pk Delgado MD, FAC /EPI
--- NOTE | 2020-04-28 18:34 | NUR ---
PT TRANSFERRED TO ROOM 311 AND BEDSIDE REPORT GIVEN TO ADELA DURAN.
--- NOTE | 2020-04-28 19:15 | NUR ---
PATIENT ARRIVED TO UNIT APPROX. 183, REPORT RECEIVED FROM MARISSA. PATIENT ON 3L O2 VIA NASAL CANNULA; BREATHING USING ACCESSORY MUSCLES AND MOANS AND GRIMACES TO TOUCH. MULTIPLE OPEN SORES ON BODY WITH FOUL SMELLING DRAINAGE PRESENT. ADMINISTERED 4MG MORPHINE AT APPROX. 1840. SPOKE WITH PATIENT'S CONTACT "JAMA" TO INQUIRE ON PATIENT'S LIKES/DISLIKES TO HELP HER FEEL MORE AT EASE. "JAMA" REPORTS PATIENT ALWAYS HAD HER TV ON SO THIS NURSE TURNED ON TV AND SET VOLUME LOW. PATIENT CURRENLTY LYING IN BED WITH EYES CLOSED, CHEST RISING AND FALLING NO APPARENT DISTRESS OBSERVED AT THIS TIME.
--- NOTE | 2020-04-29 05:58 | NUR ---
ASSUMED CARES AT 1920. OPENED EYES WHEN AWAKENED BUT MOSTLY SLEPT. DID NOT RESPOND TO QUESTIONS. O2 3L NC. IV MORPHINE GIVEN FOR COMFORT. PATEL CATHETER DD DARK MIRIAN URINE. PT HAS WOUNDS TO MULTIPLE AREAS ON BODY. WOUNDS ARE WEEPING WITH MODERATE AMOUNT OF SEROUS SANGUINOUS ODOROUS DRAINAGE. WILL CONTINUE TO MONITOR.
--- NOTE | 2020-04-29 07:50 | NUR ---
ATTEMPTED TO OBTAIN BLOOD PRESSURE ON PATIENT BUT WAS UNSUCCESSFUL, ATTEMPTED THREE DIFFERENT TIMES SINCE START OF SHIFT
--- NOTE | 2020-04-29 11:34 | NUR ---
PT.PASSED THIS AM. RN HAS LEFT 2 MESSAGES FOR DPOA TO INFORM AND GET HOME NAME. [facility] CALLED ABOUT 1100. INFORMED THEM PT. THIS AM. [facility] [phone] CALLED TO INQUIRE ON PTS CONDITION. ALSO INFORMED HER PT. THIS AM.
--- NOTE | 2020-04-29 14:57 | NUR ---
NEXT OF KIN NOTIFIED OF PT PASSING. 2 NURSES VERIFIED TIME OF . IV AND PATEL REMOVED. PT PLACED IN BODY BAG. HOME CAME AND PICKED UP PATIENT. PT BELONGINGS SENT WITH NEXT OF KIN. SECURITY ASSISTED HOME WITH GETTING PATIENT OUT. MTN NOTIFIED WITHIN [address] GILLIS WILL SIGN CERTIFICATE. HOSPICE COMPANY USED PRIOR TO ADMISSION NOTIFIED OF PT PASSING.
== END 2020-04-29 08:12 | DRG 871 ==
LOC: M.ERS 21:50 → M.2W 04-28 00:34 → M.TBA-ER 04-28 00:34 → M.2W 04-28 10:15 → M.3W 04-28 18:37
PROVIDERS: Emergency Medicine Emergency Medical Services; ADMIT Internal Medicine; ATTEND Internal Medicine
DX: A41.9 Sepsis, unspecified organism (principal); E43 Unspecified severe protein-calorie malnutrition; G93.41 Metabolic encephalopathy; N17.9 Acute kidney failure, unspecified; N30.00 Acute cystitis without hematuria; B49 Unspecified mycosis; L03.818 Cellulitis of other sites; E87.5 Hyperkalemia; G89.29 Other chronic pain; M54.9 Dorsalgia, unspecified; I10 Essential (primary) hypertension; Z96.643 Presence of artificial hip joint, bilateral; Z96.1 Presence of intraocular lens; Z51.5 Encounter for palliative care; Z66 Do not resuscitate; Z20.828 Contact with and (suspected) exposure to other viral communicable diseases; Z98.42 Cataract extraction status, left eye; Z98.41 Cataract extraction status, right eye; Z68.33 Body mass index [BMI] 33.0-33.9, adult; Z79.01 Long term (current) use of anticoagulants; Z79.899 Other long term (current) drug therapy; Z88.1 Allergy status to other antibiotic agents; Z88.5 Allergy status to narcotic agent; Z88.2 Allergy status to sulfonamides; Z88.8 Allergy status to other drugs, medicaments and biological substances